=== PATIENT | female | born 1965 | race Asian ===

== ENCOUNTER 2018-08-20 06:16 | Day surgery (SDC) | payer OTHER ==
[2018-08-17 18:13] VITALS: BMI 24.0
[2018-08-20] MEDS ORDERED: oxyCODONE HCL 5 MG TABLET PO PRN (06:31)
[2018-08-20] MEDS ORDERED: IBUPROFEN 400 MG TABLET (FP) PO PRN (06:31)
[2018-08-20] MEDS ORDERED: ACETAMINOPHEN 325 MG TABLET (FP) PO PRN (06:31)
--- NOTE | 2018-08-20 06:31 | HP ---
History & Physical Update - History History: No Change (No change in HP) - Physical Physical: No Change - Assessment Assessment: No Change - Plan Plan: No Change
[2018-08-20] MEDS ORDERED: DEXAMETHASONE SOD PHOSPHATE 4 MG/1 ML VIAL ONE (07:17)
[2018-08-20] MEDS ORDERED: MIDAZOLAM HCL 2 MG/2 ML SINGLE DOSE VIAL ONE (07:17)
[2018-08-20] MEDS ORDERED: fentaNYL CITRATE 250 MCG/5 ML VIAL ONE (07:17)
[2018-08-20] MEDS ORDERED: ROCURONIUM BROMIDE 50 MG/5 ML VIAL ONE (07:17)
[2018-08-20] MEDS ORDERED: PROPOFOL 20 ML ONE ×2 (07:17→08:19)
[2018-08-20] MEDS ORDERED: SUCCINYLCHOLINE CHLORIDE 200 MG/10 ML VIAL ONE (07:17)
[2018-08-20] MEDS ORDERED: LIDOCAINE HCL/PF 2% SDV 5ML VIAL ONE (08:14)
[2018-08-20] MEDS ORDERED: ceFAZolin SODIUM 1 GM VIAL IVPB ONE (08:25)
[2018-08-20] MEDS ORDERED: ceFAZolin SODIUM 1 GM VIAL ONE (08:39)
[2018-08-20] MEDS ORDERED: FERRIC SUBSULFATE 500 ML BOTTLE TP ONE (08:55)
--- NOTE | 2018-08-20 10:03 | OP ---
Operative Note - Note: Operative Date: 08/20/18 Pre-Operative Diagnosis: Cervical polyp. HPV. Cervical Dysplasia. endometrial polyp Operation: Hysteroscopic Myomectomy. Suction DC. Cervical polypectomy. LEEP Findings: large cervical polyp 3 cm Post-Operative Diagnosis: Same as Pre-op Surgeon: Theresa Haley Anesthesia: General Estimated Blood Loss (mls): 25 Operative Report Dictated: Yes
[2018-08-20 11:01] VITALS: TEMP 97.9
[2018-08-20 11:29] VITALS: BP 129/78; PULSE 78
--- NOTE | 2018-08-20 13:56 | OP ---
DATE OF OPERATION: 08/20/2018 PREOPERATIVE DIAGNOSIS: Cervical polyp, endometrial polyp, abnormal Pap smear, and Human papillomavirus. OPERATION: Cervical polypectomy, hysteroscopic myomectomy, suction dilation and curettage, and loop electrocautery excision procedure cone biopsy. POSTOPERATIVE DIAGNOSIS: Cervical polyp, endometrial polyp, abnormal Pap smear, and Human papillomavirus. SURGEON: Theresa Haley MD ANESTHESIA: General. ANESTHESIOLOGIST: Dr. Torres. DESCRIPTION OF PROCEDURE: The patient was taken to the operating room and placed in dorsal lithotomy position, prepped and draped in the usual sterile fashion. A time-out was performed in accordance with hospital regulation. Speculum was placed in the vagina. Anterior lip of the cervix was grasped with a single-tooth tenaculum. Endometrial polyp was seen about 3 cm coming out of the external os of the cervix. Polypectomy was performed with the polyp forceps. The cervix was then dilated to accommodate the operative hysteroscope. Examination of the endometrium revealed an endometrial polyp. Cautery and cutting of the endometrial was then done followed by suction dilation and curettage. All contents were removed, and the endometrial cavity was noted to be normal. A loop electrocautery excision procedure cervical cone biopsy was then performed. Cauterization of the cervix was then done, and Monocryls were then placed. Estimated blood loss was about 25 mL. All instruments were then removed. The patient had tolerated the procedure well and was taken to the recovery room in stable condition. THERESA HALEY M.D. [id number]
--- NOTE | 2018-08-22 17:07 | PATH ---
Surgical Pathology Report Patient Name: [facility]. Rec. #: [id number] /Age/Gender: 1965 (Age: 53) / F Account: [id number] Location: [facility] SURGICAL Taken: 08/20/2018 Received: 08/20/2018 Reported: 08/22/2018 Physicians: Theresa Haley M.D. Specimen(s) Received A: CERVICAL POLYP B: ENDOMETRIAL POLYP C: LEEP CONE 6 O'CLOCK D: LEEP CONE 12 O'CLOCK E: ENDOMETRIAL CURETTINGS Clinical History Myoma, endometrial/cervical polyp Final Diagnosis A. Cervical polyp, polypectomy: AcuteLY inflamed endocervical polyp AND microglandular hyperplasia B. Endometrial polyp, polypectomy: Endometrial polyp. C. CERVIX, 6:00, LOOP ELECTROSURGICAL EXCISION PROCEDURE (LEEP): BENIGN CERVICAL SQUAMOUS AND ENDOCERVICAL MUCOSA. NO DYSPLASIA IDENTIFIED. TRANSFORMATION ZONE: PRESENT. D. CERVIX, 12:00, LOOP ELECTROSURGICAL EXCISION PROCEDURE (LEEP): BENIGN CERVICAL SQUAMOUS AND ENDOCERVICAL MUCOSA. NO DYSPLASIA IDENTIFIED. TRANSFORMATION ZONE: PRESENT. E. Endometrial curettings, DILATATION AND curettage: Fragments of endometrial polyp admixed with blood. Electronically Signed Daisy Lambert M.D. Gross Description A. Received in formalin labeled "cervical polyp," is a 1.4 x 0.7 x 0.2 cm will, polypoid portion of soft tissue. The specimen is submitted in toto in one cassette. B. Received in formalin labeled "endometrial polyp," is a 2.7 x 2.1 x 0.3 cm aggregate of will soft tissue fragments. The formalin is filtered and the specimen is entirely submitted in one cassette. C. Received in formalin labeled "LEEP cone biopsy 6:00," is a 2.0 x 2.0 x 0.9 cm unoriented, annular portion of tissue, consistent with a cervical LEEP cone biopsy. The specimen is inked blue, sectioned and entirely and sequentially submitted in 4 cassettes. D. Received in formalin labeled "LEEP cone biopsy 12:00," is a 2.0 x 1.5 x 1.0 cm irregular, unoriented portion of tissue, consistent with a portion of cervix. The specimen is inked blue, serially sectioned and entirely and sequentially submitted in 3 cassettes. E. Received in formalin labeled "endometrial curettings," is a 2.0 x 1.5 x 0.3 cm aggregate of red-brown soft tissue fragments admixed with mucus. The formalin is filtered and the specimen is entirely submitted in one cassette. 08/20/201808/20/2018
== END 2018-08-20 11:36 | disposition home or self-care (01) ==
LOC: JASU-SURG 06:16
PROVIDERS: ATTEND Obstetrics & Gynecology
PROC: 0UJD8ZZ Inspection of Uterus and Cervix, Via Natural or Artificial Opening Endoscopic (ICD-10-PCS; 2018-08-20)
PROC: 0UBC7ZX Excision of Cervix, Via Natural or Artificial Opening, Diagnostic (ICD-10-PCS; 2018-08-20)
PROC: 0UBC7ZX Excision of Cervix, Via Natural or Artificial Opening, Diagnostic (ICD-10-PCS; principal; 2018-08-20 07:30)
PROC: 0UB97ZX Excision of Uterus, Via Natural or Artificial Opening, Diagnostic (ICD-10-PCS; 2018-08-20 07:30)
PROC: 0UDB7ZX Extraction of Endometrium, Via Natural or Artificial Opening, Diagnostic (ICD-10-PCS; 2018-08-20 07:30)
DX: N84.0 Polyp of corpus uteri (principal); N84.1 Polyp of cervix uteri; R87.810 Cervical high risk human papillomavirus (HPV) DNA test positive; R87.618 Other abnormal cytological findings on specimens from cervix uteri
CPT/HCPCS: 86850; 86900; 86901; 88305-TC; 88307-TC; 94760

== ENCOUNTER → 2022-06-23 | Day surgery (SDC) | payer BC | END | disposition home or self-care (01) | LOC: FMAMMOTONE 08:38 → MERGE 09:00 | PROVIDERS: ATTEND Surgery | PROC: 0HBT3ZX Excision of Right Breast, Percutaneous Approach, Diagnostic (ICD-10-PCS; principal; 2022-06-23) | DX: N60.31 Fibrosclerosis of right breast (principal); N60.81 Other benign mammary dysplasias of right breast; N64.89 Other specified disorders of breast; R92.1 Mammographic calcification found on diagnostic imaging of breast | CPT/HCPCS: 19081; 76098-TC-FY; 87899; 88305-TC; A4648 ==